=== PATIENT | female | born 1960 ===

== ENCOUNTER 2022-08-24 12:06 | Outpatient (CLI) | payer OTHER | END 2022-08-24 12:07 | disposition home or self-care (01) | LOC: LAB 12:06 | PROVIDERS: ATTEND Radiology Diagnostic Radiology | DX: C19 Malignant neoplasm of rectosigmoid junction (principal) ==

== ENCOUNTER 2022-08-25 07:15 | Outpatient (CLI) | payer OTHER | END 2022-08-25 07:27 | disposition home or self-care (01) | LOC: TOM 07:15 | PROVIDERS: ATTEND Colon & Rectal Surgery | DX: K57.32 Diverticulitis of large intestine without perforation or abscess without bleeding (principal) | CPT/HCPCS: 74177; Q9965 ==

== ENCOUNTER 2023-05-03 08:45 | Outpatient (CLI) | payer OTHER | END 2023-05-03 08:58 | disposition home or self-care (01) | LOC: TOM 08:45 | PROVIDERS: ATTEND Colon & Rectal Surgery | DX: K57.32 Diverticulitis of large intestine without perforation or abscess without bleeding (principal) | CPT/HCPCS: 74177; Q9965 ==